=== PATIENT | female | born 1950 | race African-American/Black ===

== ENCOUNTER 2016-08-31 14:08 | Emergency (ER) | payer MEDICARE, MEDICAID ==
[~2016-08-31] VITALS: Ht 165.1 cm; Wt 96.0 kg
[~2016-08-31 14:08] MED LIST: AMLO10TA80 PO; BACL20TA PO; BUPR150T3 PO; CYCL-108 PO; INSNOV; INSU100C11 SQ; LORA-250 PO; MICO45CR75 VG; NAPR-217 PO; NAPR220C15 PO; NITR0.4T3 SL; PRIL10 PO; SITA50TA3 PO; SOMA; VALS320T9 PO
[2016-08-31 15:25] LABS: BASOPHILS % 1.2 % (0.0-2.0); EOSINOPHILS % 3.3 % (0.0-5.0); HEMATOCRIT. 38.3 % (36.0-48.0); HEMOGLOBIN. 12.6 g/dL (12.0-16.0); MEAN CORPUSCULAR HEMOGLOBIN 27.2 pg (28.0-32.0); MEAN CORPUSCULAR HGB CONC 32.9 g/dL (31.0-37.0); MEAN CORPUSCULAR VOLUME 82.7 fL (81.0-99.0); MEAN PLATELET VOLUME 9.6 fl (7.4-10.4); MONOCYTES % 8.2 % (2.0-8.0); NEUTROPHILS % 55.3 % (40.0-76.0); PLATELET 281 x1000/uL (130-400); RED BLOOD CELL COUNT 4.64 mill/uL (4.2-5.4); RED CELL DISTRIBUTION WIDTH 14.4 % (11.6-14.6); WHITE BLOOD COUNT 9.8 x1000/uL (4.5-11.0)
[2016-08-31 15:28] LABS: CHLORIDE 103 mEq/L (98-107)
[2016-08-31 15:33] LABS: ALBUMIN 3.3 g/dL (3.4-5.0); ANION GAP 12; CALCIUM 9.4 mg/dL (8.5-10.1); CARBON DIOXIDE 29 mEq/L (21-32); INDEX HEMOLYSI 1 (1-3); INDEX ICTERIC 1 (1-4); INDEX LIPEMIC 1 (1-3); UREA NITROGEN BLOOD 11 mg/dL (7-21)
[2016-08-31 15:37] LABS: ALANINE AMINOTRANSFERASE 22 IU/L (13-61); eGFR > 60 mL/min (>60)
[2016-08-31 15:52] LABS: CLARITY URINE CLEAR (CLEAR); COLOR URINE DARK YELLOW (YELLOW); GLUCOSE URINE 2+ (NEGATIVE); KETONES URINE TRACE (NEGATIVE); LEUKOCYTE ESTERASE URINE NEGATIVE (NEGATIVE); NITRITE URINE NEGATIVE (NEGATIVE); OCCULT BLOOD URINE NEGATIVE (NEGATIVE); PROTEIN URINE 1+ (NEGATIVE); SPECIFIC GRAVITY URINE 1.036 (1.005-1.030)
[2016-08-31 16:06] LABS: BACTERIA URINE 2+; MUCUS URINE 1+ /lpf (< = 2+)
[2016-08-31 16:07] LABS: SQUAMOUS EPITHELIAL CELL URINE 1+ /lpf (RARE/1+)
[2016-08-31 16:08] LABS: RBC URINE 0-2 /hpf (0-2)
[2016-08-31] MEDS ORDERED: KETOROLAC 60MG/2ML VIAL IM ONE (16:15)
[2016-08-31 17:10] VITALS: BP 134/71
== END 2016-08-31 17:11 | disposition home or self-care (01) ==
LOC: ER 15:12
DX: J06.9 Acute upper respiratory infection, unspecified (principal); J45.909 Unspecified asthma, uncomplicated; I10 Essential (primary) hypertension; F41.9 Anxiety disorder, unspecified; E11.65 Type 2 diabetes mellitus with hyperglycemia; Z79.4 Long term (current) use of insulin; Z90.2 Acquired absence of lung [part of]
CPT/HCPCS: 36415; 71020; 80053; 81001; 85025; 96372; 99285; J1885

== ENCOUNTER 2016-12-20 12:36 | Emergency (ER) | payer MEDICARE, MEDICAID ==
[~2016-12-20] VITALS: Ht 165.1 cm; Wt 100.0 kg
[~2016-12-20 12:36] MED LIST changes: -NAPR-217 PO; +NAPR500T PO; -NITR0.4T3 SL; +NITR0.4T49 SL; +VALS320T2 PO; -VALS320T9 PO
[2016-12-20] MEDS ORDERED: SODIUM CHLORIDE 0.9% 1,000 ML IV ONE (15:39)
[2016-12-20] MEDS ORDERED: MORPHINE SULFATE 4 MG/ML CPJ (NOT FOR IM USE) IV STA (15:39)
[2016-12-20] MEDS ORDERED: KETOROLAC 30MG/ML VIAL IV STA (15:39)
[2016-12-20] MEDS ORDERED: ONDANSETRON HCL 4MG/2ML VIAL IV STA (15:39)
[2016-12-20 16:10] LABS: CLARITY URINE CLEAR (CLEAR); COLOR URINE YELLOW (YELLOW); GLUCOSE URINE 3+ (NEGATIVE); KETONES URINE TRACE (NEGATIVE); LEUKOCYTE ESTERASE URINE NEGATIVE (NEGATIVE); NITRITE URINE NEGATIVE (NEGATIVE); OCCULT BLOOD URINE NEGATIVE (NEGATIVE); PH URINE 5.5 (4.5-8.0); PROTEIN URINE NEGATIVE (NEGATIVE); SPECIFIC GRAVITY URINE 1.035 (1.005-1.030); UROBILINOGEN URINE 0.2 E.U./dL (0.2-1.0)
[2016-12-20 16:13] LABS: BASOPHILS % 0.7 % (0.0-2.0); EOSINOPHILS % 2.9 % (0.0-5.0); HEMATOCRIT. 36.8 % (36.0-48.0); HEMOGLOBIN. 12.1 g/dL (12.0-16.0); LYMPHOCYTES % 37.3 % (20.0-50.0); MEAN CORPUSCULAR HEMOGLOBIN 27.7 pg (28.0-32.0); MEAN CORPUSCULAR VOLUME 83.9 fL (81.0-99.0); MEAN PLATELET VOLUME 9.2 fl (7.4-10.4); MONOCYTES % 8.3 % (2.0-8.0); NEUTROPHILS % 50.8 % (40.0-76.0); PLATELET 250 x1000/uL (130-400); RED BLOOD CELL COUNT 4.39 mill/uL (4.2-5.4); RED CELL DISTRIBUTION WIDTH 13.8 % (11.6-14.6)
[2016-12-20 16:16] LABS: CHLORIDE 105 mEq/L (98-107)
[2016-12-20 16:22] LABS: CARBON DIOXIDE 28 mEq/L (21-32)
[2016-12-20 16:25] LABS: TROPONIN I < 0.02 ng/mL (0.00-0.04)
[2016-12-20 19:13] VITALS: BP 170/90
== END 2016-12-20 19:14 | disposition home or self-care (01) ==
LOC: ER 15:21
DX: K59.00 Constipation, unspecified (principal); E11.22 Type 2 diabetes mellitus with diabetic chronic kidney disease; I12.9 Hypertensive chronic kidney disease with stage 1 through stage 4 chronic kidney disease, or unspecified chronic kidney disease; N18.9 Chronic kidney disease, unspecified; J45.909 Unspecified asthma, uncomplicated; Z79.4 Long term (current) use of insulin
CPT/HCPCS: 36415; 74176; 80053; 81001; 83690; 83880; 84484; 85025; 85610; 96361; 96374; 96375; 99285; J1885; J2270; J2405; J7030